=== PATIENT | male | born 1960 | race American Indian/Alaskan Native ===

== ENCOUNTER 2021-11-21 13:46 | Emergency (ER) | payer SELFPAY ==
[2021-11-21 15:09] LABS: Basophils % (Auto) 0.5 % (0.0-1.8); Eosinophils # (Auto) 0.1 K/mm3 (0.0-0.4); Eosinophils % (Auto) 1.6 % (0.0-4.3); Hematocrit 48.7 % (35.5-45.6); Hemoglobin 15.5 gm/dl (11.8-15.2); Lymphocytes # (Auto) 1.2 K/mm3 (1.2-5.4); Lymphocytes % (Auto) 20.5 % (13.4-35.0); Mean Corpuscular HGB Conc 32 % (32-34); Mean Corpuscular Volume 82 fl (84-94); Monocytes # (Auto) 0.4 K/mm3 (0.0-0.8); Monocytes % (Auto) 6.7 % (0.0-7.3); Platelet Count 284 K/mm3 (140-440); Red Blood Count 5.91 M/mm3 (3.65-5.03); Red Cell Distribution Width 14.6 % (13.2-15.2)
[2021-11-21 15:09] LABS: Bilirubin,Urine NEG (Negative); Blood,Urine NEG (Negative); Color,Urine Straw (Yellow); Mucus,Urine FEW /HPF; Protein,Urine <15 mg/dL mg/dL (Negative); Urobilinogen,Urine < 2.0 mg/dL (<2.0); WBC,Urine < 1.0 /HPF (0.0-6.0)
[2021-11-21 15:14] LABS: Alanine Aminotransferase 21 units/L (7-56); Albumin 4.2 g/dL (3.9-5); BUN/Creatinine Ratio 14; Blood Urea Nitrogen 15 mg/dL (9-20); Hemolysis Index 12
[2021-11-21] MEDS ORDERED: INSULIN REGULAR, HUMAN 100 UNITS/1 ML IV ONE ×2 (16:48→19:07)
[2021-11-21] MEDS ORDERED: SODIUM CHLORIDE 0.9% 1000 ML 1,000 ML IV ONE ×3 (16:48→16:49)
--- NOTE | 2021-11-21 16:54 | Emergency Department Report ---
ED General Adult HPI - General Chief complaint: Medical Clearance Stated complaint: NOT FEELING WELL ( POSS DIABETES) Time Seen by Provider: 11/21/21 16:47 Source: patient Mode of arrival: Ambulatory Limitations: No Limitations - History of Present Illness Initial comments: 61-year-old male with past medical history hypertension presents to the hospital complaining of symptoms of a new onset diabetes. Patient complains of 1 month of increased thirst, frequent urination, dry mouth, lightheadedness, weight loss, and fatigue. Patient has not seen his doctor in several months due to possible insurance issues. He does not have abdominal pain, nausea, vomiting, fever, or dysuria - Related Data Home Medications Medication Instructions Recorded Confirmed Last Taken Losartan [Cozaar] 50 mg PO QDAY 11/21/21 11/21/21 11/21/21 Rosuvastatin Calcium [Crestor] 10 mg PO DAILY 11/21/21 11/21/21 11/21/21 hydroCHLOROthiazide [HCTZ] 12.5 mg PO DAILY 11/21/21 11/21/21 11/21/21 Previous Rx's Medication Instructions Recorded Last Taken Type Glimepiride [Amaryl] 4 mg PO QAM #30 tablet 11/21/21 Unknown Rx metFORMIN [Glucophage] 500 mg PO BID #60 tab 11/21/21 Unknown Rx Allergies Allergy/AdvReac Type Severity Reaction Status Date / Time No Known Allergies Allergy Unverified 11/21/21 14:21 ED Review of Systems ROS: Stated complaint: NOT FEELING WELL ( POSS DIABETES) Other details as noted in HPI Comment: All other systems reviewed and negative ED Past Medical Hx - Past Medical History Previous Medical History?: Yes Hx Hypertension: Yes - Surgical History Past Surgical History?: Yes Additional Surgical History: Umbilical hernia - Medications Home Medications: Home Medications Medication Instructions Recorded Confirmed Last Taken Type Glimepiride [Amaryl] 4 mg PO QAM #30 tablet 11/21/21 Unknown Rx Losartan [Cozaar] 50 mg PO QDAY 11/21/21 11/21/21 11/21/21 History Rosuvastatin Calcium [Crestor] 10 mg PO DAILY 11/21/21 11/21/21 11/21/21 History hydroCHLOROthiazide [HCTZ] 12.5 mg PO DAILY 11/21/21 11/21/21 11/21/21 History metFORMIN [Glucophage] 500 mg PO BID #60 tab 11/21/21 Unknown Rx ED Physical Exam - General Limitations: No Limitations - Other Other exam information: General: No acute distress Head: Atraumatic Eyes: normal appearance ENT: Dry mucous membranes Neck: Normal appearance, no midline tenderness Chest: Clear to auscultation bilaterally CV: Regular rate and rhythm Abdomen: Soft, normal bowel sounds, nontender, nondistended, no rebound or guarding Back: Normal inspection Extremity: Normal inspection, full range of motion Neuro: Alert O x 3, no facial asymmetry, speech clear, no gross motor sensory deficit Psych: Appropriate behavior Skin: No rash ED Course Vital Signs 11/21/21 11/21/21 11/21/21 14:28 17:40 17:43 Temperature 97.3 F L Pulse Rate 42 L 75 Respiratory 20 14 Rate Blood Pressure 130/69 154/95 [Right] O2 Sat by Pulse 97 99 99 Oximetry 11/21/21 11/21/21 19:31 19:40 Temperature Pulse Rate 62 Respiratory 18 18 Rate Blood Pressure 144/90 [Right] O2 Sat by Pulse 99 99 Oximetry - Reevaluation(s) Reevaluation #1: 11/21/21 20:30 glucose 299 pt reports feeling ED Medical Decision Making - Lab Data Result diagrams: 11/21/21 14:42 11/21/21 14:42 Lab Results 11/21/21 11/21/21 11/21/21 Range/Units 14:42 14:42 Unknown WBC 5.9 (4.5-11.0) K/mm3 RBC 5.91 H (3.65-5.03) M/mm3 Hgb 15.5 H (11.8-15.2) gm/dl Hct 48.7 H (35.5-45.6) % MCV 82 L (84-94) fl MCH 26 L (28-32) pg MCHC 32 (32-34) % RDW 14.6 (13.2-15.2) % Plt Count 284 (140-440) K/mm3 Lymph % (Auto) 20.5 (13.4-35.0) % Walker % (Auto) 6.7 (0.0-7.3) % Eos % (Auto) 1.6 (0.0-4.3) % Baso % (Auto) 0.5 (0.0-1.8) % Lymph # (Auto) 1.2 (1.2-5.4) K/mm3 Walker # (Auto) 0.4 (0.0-0.8) K/mm3 Eos # (Auto) 0.1 (0.0-0.4) K/mm3 Baso # (Auto) 0.0 (0.0-0.1) K/mm3 Seg Neutrophils % 70.7 H (40.0-70.0) % Seg Neutrophils # 4.2 (1.8-7.7) K/mm3 Sodium 126 L (137-145) mmol/L Potassium 4.7 (3.6-5.0) mmol/L Chloride 89.3 L (98-107) mmol/L Carbon Dioxide 23 (22-30) mmol/L Anion Gap 18 mmol/L BUN 15 (9-20) mg/dL Creatinine 1.1 (0.8-1.3) mg/dL Estimated GFR > 60 ml/min BUN/Creatinine Ratio 14 % Glucose 620 H* (75-100) mg/dL Calcium 9.0 (8.4-10.2) mg/dL Total Bilirubin 0.80 (0.1-1.2) mg/dL AST 19 (5-40) units/L ALT 21 (7-56) units/L Alkaline Phosphatase 146 H (35-129) units/L Total Protein 7.3 (6.3-8.2) g/dL Albumin 4.2 (3.9-5) g/dL Albumin/Globulin Ratio 1.4 % Urine Color Straw (Yellow) Urine Turbidity Clear (Clear) Urine pH 5.0 (5.0-7.0) Ur Specific [place] 1.032 H (1.003-1.030) Urine Protein <15 mg/dl (Negative) mg/dL Urine Glucose (UA) >=500 (Negative) mg/dL Urine Ketones Neg (Negative) mg/dL Urine Blood Neg (Negative) Urine Nitrite Neg (Negative) Urine Bilirubin Neg (Negative) Urine Urobilinogen < 2.0 (<2.0) mg/dL Ur Leukocyte Esterase Neg (Negative) Urine WBC (Auto) < 1.0 (0.0-6.0) /HPF Urine RBC (Auto) 1.0 (0.0-6.0) /HPF Urine Mucus Few /HPF - EKG Data -: EKG Interpreted by Me EKG shows normal: sinus rhythm (78), ST-T waves (no stemi) Rate: normal - Medical Decision Making 61-year-old male presents to the hospital with new onset diabetes. No signs of DKA. Dehydration noted as indicated by UA specific gravity but no signs of renal insufficiency. Bradycardia was documented on initial triage however, EKG performed several minutes later showed normal sinus rhythm and rate. Patient was treated 3 L of normal saline and multiple boluses of insulin with improvement of sugar below 300. Metformin provided prior to discharge. Patient will be discharged on medication as recommended by hospitalist and outpatient follow-up will be encouraged Critical Care Time: No Critical care attestation.: If time is entered above; I have spent that time in minutes in the direct care of this critically ill patient, excluding procedure time. ED Disposition Clinical Impression: Diabetes mellitus, new onset, Hyperglycemia, Dehydration Disposition: HOME / SELF CARE / HOMELESS Is pt being admited?: No Does the pt Need Aspirin: No Condition: Stable Instructions: Diabetes Mellitus Type 2 in Adults (ED), Type 2 Diabetes Mellitus, Diagnosis, Adult, Blood Glucose Monitoring, Adult Additional Instructions: Take the medication as prescribed. You are being started on new diabetes medication. It is very important that you follow-up with a primary care doctor for further diabetes monitoring and medication adjustment. Low glucose levels can be life-threatening and it is important that you monitor your glucose levels closely for both high and low glucose levels. Buy [id number] glucose monitoring and testing strips and use as discussed in the provided discharge instructions. Follow-up with your doctor or the clinic provided. Return if symptoms worsen as indicated by your discharge instructions Prescriptions: Glimepiride [Amaryl] 4 mg PO QAM #30 tablet metFORMIN [Glucophage] 500 mg PO BID #60 tab Referrals: ALTA HAYS MD [Primary Care Provider] - 3-5 Days [facility] [Provider Group] - 3-5 Days Time of Disposition: 20:49
[2021-11-21] MEDS ORDERED: metFORMIN 500 MG TAB PO ONE (20:33)
[2021-11-21 21:21] VITALS: BP 141/90
--- NOTE | 2021-11-22 18:17 | Electrocardiograph Report ---
[facility] Test Date: 2021-11-21 Test Time: 14:31:26 [facility] Department: Room: Gender: M Education Spec: MARIANA : 1960 Requested By: ROXANA REEVES Order Number: [id number] Reading MD: Luis Morocho Measurements Intervals [place] Rate: 78 P: 39 CA: 203 QRS: 43 QRSD: 94 T: 31 QT: 385 QTc: 436 Interpretive Statements Sinus rhythm Atrial premature complex Borderline prolonged CA interval No previous ECG available for comparison Electronically Signed On 11-22-2021 18:16:43 EDT by Luis Morocho
== END 2021-11-21 20:15 | disposition home or self-care (01) ==
LOC: ED 13:46
DX: E11.65 Type 2 diabetes mellitus with hyperglycemia (principal); E86.0 Dehydration; I10 Essential (primary) hypertension; Z79.899 Other long term (current) drug therapy
CPT/HCPCS: 36415; 80053; 81001; 85025; 93005; 96361; 96374; 96375; 99284; J7030; Q9967; J1815

== ENCOUNTER 2021-11-25 18:57 | Emergency (ER) | payer SELFPAY ==
[2021-11-25 22:10] VITALS: BP 136/80
[2021-11-25] MEDS ORDERED: SODIUM CHLORIDE 0.9% 1000 ML 1,000 ML IV ONE (22:58)
[2021-11-25 23:32] LABS: Basophils # (Auto) 0.1 K/mm3 (0.0-0.1); Basophils % (Auto) 1.8 % (0.0-1.8); Eosinophils % (Auto) 0.2 % (0.0-4.3); Hematocrit 53.2 % (35.5-45.6); Hemoglobin 16.9 gm/dl (11.8-15.2); Lymphocytes # (Auto) 0.3 K/mm3 (1.2-5.4); Lymphocytes % (Auto) 3.2 % (13.4-35.0); Mean Corpuscular HGB Conc 32 % (32-34); Mean Corpuscular Volume 82 fl (84-94); Monocytes # (Auto) 0.5 K/mm3 (0.0-0.8); Monocytes % (Auto) 6.7 % (0.0-7.3); Platelet Count 309 K/mm3 (140-440); Red Blood Count 6.49 M/mm3 (3.65-5.03); Red Cell Distribution Width 14.7 % (13.2-15.2)
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
[2021-11-25 23:43] LABS: INR 0.89 (0.87-1.13)
[2021-11-25 23:47] LABS: Creatine Kinase MB 1.8 ng/mL (0.0-4.0)
[2021-11-25 23:49] LABS: Alanine Aminotransferase 23 units/L (7-56); Albumin 4.4 g/dL (3.9-5); BUN/Creatinine Ratio 15; Blood Urea Nitrogen 22 mg/dL (9-20); Calcium 9.2 mg/dL (8.4-10.2); Hemolysis Index 20
--- NOTE | 2021-11-27 10:23 | Electrocardiograph Report ---
[facility] Test Date: 2021-11-25 Test Time: 20:15:33 Pat Name: VINEET SAHNI Department: Room: Gender: M [employer] Mixer: NELA : 1960 Requested By: BETSY ARREOLA Order Number: [id number] Reading MD: Arnaud Juares Measurements Intervals [place] Rate: 102 P: 71 MO: 186 QRS: 90 QRSD: 86 T: 118 QT: 377 QTc: 460 Interpretive Statements Sinus tachycardia Atrial premature complexes [id number] Compared to ECG 11/21/2021 14:31:26 Sinus rhythm no longer present Electronically Signed On 11-27-2021 10:23:18 EDT by Arnaud Juares
== END 2021-11-26 01:28 | disposition left against medical advice (07) ==
LOC: ED 18:57
DX: Z00.00 Encounter for general adult medical examination without abnormal findings (principal); R79.1 Abnormal coagulation profile; Z53.21 Procedure and treatment not carried out due to patient leaving prior to being seen by health care provider
CPT/HCPCS: 36415; 80053; 82550; 82553; 84484; 85025; 85610; 93005